=== PATIENT | male | born 1955 | race Caucasian/White ===

== ENCOUNTER 2017-06-05 09:54 | Emergency (ER) | payer BC ==
[2017-06-05 09:59] VITALS: TEMP 98.4
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
[2017-06-05 12:01] VITALS: BP 132/65; PULSE 68; RESP 18; O2SAT 98
== END 2017-06-05 11:45 | disposition home or self-care (01) ==
DX: S52.502A Unspecified fracture of the lower end of left radius, initial encounter for closed fracture (principal); G20 Parkinson's disease; V18.0XXA Pedal cycle driver injured in noncollision transport accident in nontraffic accident, initial encounter; Y92.410 Unspecified street and highway as the place of occurrence of the external cause; Y99.8 Other external cause status; Y93.55 Activity, bike riding
CPT/HCPCS: A4565